=== PATIENT | male | born 1990 | race Caucasian/White ===

== ENCOUNTER 2017-01-06 16:10 | Outpatient (CLI) | payer MEDICAID | END 2017-01-06 16:11 | disposition home or self-care (01) | DX: Z79.899 Other long term (current) drug therapy (principal) ==

== ENCOUNTER 2018-06-13 16:27 | Emergency (ER) | payer MEDICAID ==
--- NOTE | 2018-06-13 16:38 | ED Physician Documentation ---
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 Per the police crime scene technician he has been having increased aggression over the last few days and his mother called 911 because of aggressive behavior at home. The patient's history is that he just asked his mom for a rice crispy treat with marijuana and she would not give it to him and all of a sudden he finds himself at the emergency. Department.) Review of Systems Ten Systems: 10 systems reviewed and negative Constitutional: denies: Fever, Chills Cardiac: denies: Chest pain / pressure, Palpitations Respiratory: denies: Dyspnea, Cough GI: denies: Abdominal Pain PD PAST MEDICAL HISTORY - Past Medical History Respiratory: Asthma GI: GERD Psych: Anxiety, Bipolar disorder, Schizophrenia, Panic attacks, ADD/ADHD, Post traumatic stress disorder, Claustrophobia, Eating disorder Musculoskeletal: Other - Past Surgical History Past Surgical History: No - Present Medications Home Medications: Ambulatory Orders Medication Instructions Recorded Confirmed Dextroamphetamine/Amphetamine 40 mg ORAL DAILY 07/04/15 07/04/15 [Adderall 20 mg Tablet] Ondansetron HCl [Zofran] 4 mg PO Q6H PRN #10 tablet 07/04/15 Perphenazine 24 mg ORAL DAILY 07/04/15 07/04/15 Prazosin [Minipress] 1 mg ORAL DAILY 07/04/15 07/04/15 lamoTRIgine [LaMICtal] 200 mg ORAL DAILY 07/04/15 07/04/15 traZODone [Desyrel] 50 mg ORAL DAILY 07/04/15 07/04/15 - Allergies Allergies/Adverse Reactions: Allergies Allergy/AdvReac Type Severity Reaction Status Date / Time zolpidem tartrate * AdvReac Intermediate Anxiety Verified 10/19/16 10:12 [From Ambien] - Social History Does the pt smoke?: No Smoking Status: Never smoker Does the pt drink ETOH?: Yes Does the pt have substance abuse?: Yes - Family History Family history: reports: Non contributory - Immunizations Immunizations are current?: Yes - POLST Patient has POLST: No PD ED PE NORMAL - Vitals Vital signs reviewed: Yes - General General: Alert and oriented X 3, Other (He is a well tattooed gentleman who is even verbally aggressive with the police crime scene technician as I am examining him.) - HEENT HEENT: PERRL, EOMI - Neck Neck: Supple, no meningeal sign, No bony TTP - Cardiac Cardiac: RRR, No murmur - Respiratory Respiratory: No respiratory distress, Clear bilaterally - Abdomen Abdomen: Normal bowel sounds, Soft, Non tender - Back Back: No CVA TTP, No spinal TTP - Derm Derm: Normal color, Warm and dry - Extremities Extremities: No deformity, No tenderness to palpate - Neuro Neuro: Alert and oriented X 3 Eye Opening: Spontaneous Motor: Obeys Commands Verbal: Oriented GCS Score: 15 - Psych Psych: Other (He is verbally aggressive and very intense and has poor insight into his illness.) Results - Vitals Vitals: Vital Signs - 24 hr 06/13/18 06/13/18 06/13/18 16:37 19:14 21:29 Temperature 36.9 C Heart Rate 96 100 64 Respiratory 16 18 16 Rate Blood Pressure 146/82 H 133/88 H 124/76 O2 Saturation 100 96 100 Oxygen O2 Source Room air - EKG (time done) 2141 Rate: Rate (enter#) (63) Rhythm: NSR [place]: Normal Intervals: Normal [place] QRS: Normal Ischemia: ST elevation c/w repol Computer interpretation: Agree with computer - Labs Labs: Laboratory Tests 06/13/18 06/13/18 06/13/18 19:24 19:25 19:25 WBC 15.2 H RBC 5.01 Hgb 15.2 Hct 44.2 MCV 88.2 MCH 30.4 MCHC 34.5 RDW 13.8 Plt Count 254 MPV 7.9 Neut # (Auto) 12.3 H Lymph # (Auto) 1.9 Mckean # (Auto) 1.0 Eos # (Auto) 0.0 Baso # (Auto) 0.1 Absolute Nucleated RBC 0.01 Nucleated RBC % 0.0 Sodium 139 Potassium 3.9 Chloride 104 Carbon Dioxide 26 Anion Gap 9.0 BUN 14 Creatinine 0.7 Estimated GFR (MDRD) 137 Glucose 94 Calcium 9.3 Total Bilirubin 0.7 AST 30 ALT 58 Alkaline Phosphatase 67 Total Protein 8.2 Albumin 4.8 Globulin 3.4 Albumin/Globulin Ratio 1.4 Lipase 27 Salicylates < 6.0 Urine Opiates Screen NEGATIVE Ur Oxycodone Screen NEGATIVE Urine Methadone Screen NEGATIVE Ur Propoxyphene Screen NEGATIVE Acetaminophen < 10 L Ur Barbiturates Screen NEGATIVE Ur Tricyclics Screen NEGATIVE Ur Phencyclidine Scrn NEGATIVE Ur Amphetamine Screen NEGATIVE U Methamphetamines Scrn NEGATIVE U Benzodiazepines Scrn NEGATIVE Urine Cocaine Screen NEGATIVE U Cannabinoids Screen POSITIVE H Ethyl Alcohol < 5.0 PD MEDICAL DECISION MAKING - ED course ED course: 27-year-old gentleman with underlying mental illness presents decompensated with aggressive behavior. He is initially quite aggressive and laughing and external stimuli here. The [facility] was consulted and he was detained to [facility] in the care of Dr. Hansen, cobras were completed. - Sepsis Event Vital Signs: Vital Signs - 24 hr 06/13/18 06/13/18 06/13/18 16:37 19:14 21:29 Temperature 36.9 C Heart Rate 96 100 64 Respiratory 16 18 16 Rate Blood Pressure 146/82 H 133/88 H 124/76 O2 Saturation 100 96 100 Oxygen O2 Source Room air Departure - Departure Disposition: 02 Transfer Acute Care Hosp Clinical Impression: Schizophrenia Qualifiers: Schizophrenia type: paranoid schizophrenia Qualified Code(s): F20.0 - Paranoid schizophrenia Condition: Serious
[2018-06-13] MEDS ORDERED: LORazepam 0.5 MG TABLET PO STA (19:11)
[2018-06-13] MEDS ORDERED: NICOTINE 21 MG PATCH TOP STA (19:21)
[2018-06-13 19:29] LABS: MUDS CUTOFF CONCENTRATIONS CUTOFF CONC BELOW:
[2018-06-13 19:37] LABS: BASOPHILS # (AUTO) 0.1 10^3/uL (0.0-0.1); BASOPHILS % (AUTO) 0.6 %; HGB - HEMOGLOBIN 15.2 g/dL (14.0-18.0); LYMPHOCYTES # (AUTO) 1.9 10^3/uL (1.5-3.5); LYMPHOCYTES % (AUTO) 12.3 %; MEAN CORPUSCULAR HEMOGLOBIN 30.4 pg (27.0-31.0); MEAN CORPUSCULAR HGB CONC 34.5 g/dL (32.0-36.0); MEAN CORPUSCULAR VOLUME 88.2 fL (80.0-94.0); MEAN PLATELET VOLUME 7.9 fL (7.4-11.4); MONOCYTES % (AUTO) 6.4 %; NEUTROPHILS # (AUTO) 12.3 10^3/uL (1.5-6.6); NEUTROPHILS % (AUTO) 80.7 %; PLT - PLATELET COUNT 254 10^3/uL (130-450); RED BLOOD COUNT 5.01 10^6/uL (4.70-6.10); RED CELL DISTRIBUTION WIDTH 13.8 % (12.0-15.0); WHITE BLOOD COUNT 15.2 x10^3/uL (4.8-10.8)
[2018-06-13 19:52] LABS: ALBUMIN 4.8 g/dL (3.2-5.5); ALBUMIN/GLOBULIN RATIO 1.4 (1.0-2.2); ALKALINE PHOSPHATASE 67 IU/L (42-121); ALT ALANINE AMINOTRANSFERASE 58 IU/L (10-60); AST ASPARTATE AMINOTRANSFERASE 30 IU/L (10-42); BILIRUBIN,TOTAL 0.7 mg/dL (0.2-1.0); BUN - BLOOD UREA NITROGEN 14 mg/dL (6-20); CALCIUM 9.3 mg/dL (8.5-10.3); CARBON DIOXIDE - CO2 26 mmol/L (21-32); CHLORIDE 104 mmol/L (101-111); CREATININE 0.7 mg/dL (0.6-1.2); GFR - MDRD 137 (>89); GLUCOSE 94 mg/dL (70-100); LIPASE 27 U/L (22-51); SALICYLATE < 6.0 mg/dL; SODIUM 139 mmol/L (135-145); TOTAL PROTEIN 8.2 g/dL (6.7-8.2)
[2018-06-13 19:58] LABS: ACETAMINOPHEN < 10 ug/mL (10-30)
[2018-06-13 20:01] LABS: AMPHETAMINE SCREEN,URINE NEGATIVE (NEGATIVE); BENZODIAZEPINES SCREEN, URINE NEGATIVE (NEGATIVE); COCAINE SCREEN URINE NEGATIVE (NEGATIVE); METHADONE SCREEN, URINE NEGATIVE (NEGATIVE); METHAMPHETAMINES SCREEN, URINE NEGATIVE (NEGATIVE); OPIATE SCREEN, URINE NEGATIVE (NEGATIVE); TRICYCLIC ANTIDEPRESSANT,URINE NEGATIVE (NEGATIVE)
[2018-06-13 20:02] LABS: OXYCODONE SCREEN, URINE NEGATIVE (NEGATIVE); PROPOXYPHENE SCREEN, URINE NEGATIVE (NEGATIVE)
[2018-06-13] MEDS ORDERED: OLANZapine ODT 5 MG TABLET TL STA (20:07)
[2018-06-13 23:35] VITALS: BP 136/74
== END 2018-06-13 23:35 | disposition short-term general hospital (02) ==
LOC: EDUNIT# → ED 16:27
DX: F20.0 Paranoid schizophrenia (principal)
CPT/HCPCS: 36415; 80053; 80306; 80307; 80320; 80329; 83690; 85025; 93005; 99285; A9270; 99284